=== PATIENT | male | born 1945 | race Caucasian/White ===

== ENCOUNTER 2023-04-30 14:58 | Observation (INO) ==
[2023-04-30] MEDS ORDERED: Lorazepam PYXIS KEY PRN ×2 (15:06→15:22)
[2023-04-30] MEDS ORDERED: LORazepam 2 mg VIAL 1 ml ONE (15:07)
[2023-04-30] MEDS: LORazepam 2 mg VIAL 1 ml IV PUSH ONE ×2 (15:09→15:19)
[2023-04-30] MEDS: levETIRAcetam IV 1,500 MG in NS 0.9% 100 ml BAG 100 ML IVPB ONE (15:34)
[2023-04-30 15:49] LABS: ABS Basophils 0.1 10^3/uL (0.0-0.1); ABS Eosinophils 0.1 10^3/uL (0.0-0.5); ABS Lymphocytes 2.8 10^3/uL (1.0-4.8); ABS Monocytes 0.8 10^3/uL (0.0-1.1); ABS Neutrophils 4.8 10^3/uL (1.5-7.6); ABS Nucleated RBC 0.01 10^3/ul; Eosinophil % 1.4 %; Hematocrit 40.4 % (38-53); Hemoglobin 13.8 g/dL (13.2-16.3); Mean Corpuscular Hemoglobin 30.9 pg (27-33); Mean Corpuscular Hgb Conc 34.2 g/dL (31-36); Mean Corpuscular Volume 90.5 fL (80-97); Mean Platelet Volume 8.2 fL (7.5-11.2); Nucleated Red Blood Cells % 0.1 %/100WBC (0.0-0.8); Platelet Count 386 10^3/uL (150-450); Red Blood Count 4.46 10^6/uL (4.06-5.63); Red Cell Distribution Width 15.1 % (12-17); White Blood Count 8.5 10^3/uL (3.6-10.2)
[2023-04-30 16:21] LABS: Albumin/Globulin Ratio 1.5 (1-3); Creatinine, Serum 0.78 mg/dL (0.67-1.17); Globulin 2.7 g/dL (2-4); Potassium 3.3 mmol/L (3.5-5.0); Total Bilirubin 0.3 mg/dL (0.2-1.0); Total Protein 6.7 g/dL (6.4-8.9)
[2023-04-30] MEDS: levETIRAcetam 500 MG IVPREMIX 500 MG/100 ML BAG IV SCH (19:41)
[2023-04-30] MEDS: Lactated Ringers 1000 ml BAG 1,000 ML IV SCH ×3 (19:43→22:48)
[2023-04-30 20:30] LABS: Magnesium 1.3 mg/dL (1.9-2.7)
[2023-04-30] MEDS ORDERED: Ondansetron ODT 4 mg TAB 4 MG TAB SL PRN (20:33)
[2023-04-30] MEDS ORDERED: LORazepam 2 mg VIAL 1 ml IV PUSH PRN (20:53)
[2023-04-30] MEDS ORDERED: Dextrose 50% Syringe 50 ml 25 GM/50 ML SYRINGE IV PUSH PRN (21:21)
[2023-04-30] MEDS: Magnesium Sulf 4 GM/100 ML IV 4,000 MG/100 ML BAG IVPB ONE (22:44)
[2023-04-30] MEDS: Enoxaparin 40 MG/0.4 ML SYR SUBCUT SCH (22:47)
[2023-04-30] MEDS: NF:ICOSAPENT ETHYL 1 GM CAPSULE (NF) PO SCH (22:47)
[2023-05-01] MEDS: DULoxetine DR 30 mg CAP PO SCH (00:45)
[2023-05-01] MEDS: Potassium Chloride LIQUID 20 MEQ/15 ML LIQUID PO ONE (00:46)
[2023-05-01] MEDS: KCL 20 MEQ/100 ML IVPREMIX 20 MEQ/100 ML BAG IV SCH (02:18)
[2023-05-01 02:57] LABS: Urine Appearance Clear; Urine Bilirubin Negative (Negative); Urine Blood Negative (Negative); Urine Color Yellow; Urine Glucose 3+(>=500 mg/dL) (Negative); Urine Ketones Trace (Negative); Urine Nitrite Negative (Negative); Urine Protein Negative (Negative); Urine Specific Gravity 1.024 (1.002-1.030); Urine Urobilinogen Negative (Negative)
[2023-05-01 07:19] LABS: ALT 23 U/L (7-52); Albumin 3.6 g/dL (3.2-5.2); Albumin/Globulin Ratio 1.4 (1-3); Alkaline Phosphatase 62 U/L (35-149); Anion Gap 8 mmol/L (2-16); Blood Urea Nitrogen 8 mg/dL (6-24); CO2 Carbon Dioxide 27 mmol/L (22-32); Chloride 104 mmol/L (101-111); Globulin 2.5 g/dL (2-4); Glucose 65 mg/dL (70-100); Magnesium 2.1 mg/dL (1.9-2.7); Sodium 139 mmol/L (135-145); Total Bilirubin 0.4 mg/dL (0.2-1.0); Total Protein 6.1 g/dL (6.4-8.9); eGFR CKD-EPI 100.7 (>60)
[2023-05-01] MEDS ORDERED: Polyethylene Glycol 3350 17 GM PACKET PO SCH (09:00)
[2023-05-01 09:35] LABS: Potassium, Whole Blood 4.1 mmol/L (3.4-4.5)
[2023-05-01] MEDS: Cholecalciferol (VIT D3) 1,000 unit TAB PO SCH (09:55)
[2023-05-01] MEDS: Polyethylene Glycol 3350 17 GM PACKET PO SCH (09:56)
[2023-05-01] MEDS: Senna TAB 8.6 mg TAB PO SCH (20:48)
[2023-05-01] MEDS ORDERED: Senna TAB 8.6 mg TAB PO SCH (21:00)
[2023-05-02 07:47] LABS: ABS Basophils 0.1 10^3/uL (0.0-0.1); ABS Eosinophils 0.1 10^3/uL (0.0-0.5); ABS Monocytes 0.4 10^3/uL (0.0-1.1); ABS Neutrophils 2.3 10^3/uL (1.5-7.6); Eosinophil % 1.6 %; Hematocrit 34.2 % (38-53); Hemoglobin 11.7 g/dL (13.2-16.3); Lymphocyte % 26.3 %; Mean Corpuscular Hgb Conc 34.2 g/dL (31-36); Mean Corpuscular Volume 90.7 fL (80-97); Mean Platelet Volume 7.4 fL (7.5-11.2); Platelet Count 218 10^3/uL (150-450); Red Blood Count 3.77 10^6/uL (4.06-5.63); Red Cell Distribution Width 15.2 % (12-17); White Blood Count 3.9 10^3/uL (3.6-10.2)
[2023-05-02 08:15] LABS: Calcium 8.6 mg/dL (8.6-10.3); Creatinine, Serum 0.65 mg/dL (0.67-1.17); Magnesium 1.6 mg/dL (1.9-2.7); Potassium 3.2 mmol/L (3.5-5.0); eGFR CKD-EPI 98.3 (>60)
[2023-05-02 09:41] VITALS: BP 138/69
[2023-05-02] MEDS: Potassium Chlor 20 meq TAB.ER PO ONE (11:41)
[2023-05-02] MEDS: Magnesium Sulfate 2 gm BAG 2 GM/50 ML BAG IVPB ONE (11:52)
[2023-05-02] MEDS: Potassium Chloride LIQUID 20 MEQ/15 ML LIQUID PO ONE ×2 (12:08→13:05)
[2023-05-02] MEDS ORDERED: Potassium Chlor 20 meq TAB.ER PO ONE (13:00)
== END 2023-05-02 14:54 | disposition home or self-care (01) ==
LOC: ED 14:58 → EDHOLD 14:58 → SUATTDRO 18:27 → MEDTELE 20:04
PROVIDERS: ADMIT Internal Medicine; ATTEND Internal Medicine

== ENCOUNTER 2023-10-04 14:35 | Observation (INO) ==
[2023-10-04 15:37] LABS: ABS Lymphocytes 0.8 10^3/uL (1.0-4.8); ABS Monocytes 0.6 10^3/uL (0.0-1.1); ABS Neutrophils 4.6 10^3/uL (1.5-7.6); Eosinophil % 0.4 %; Hemoglobin 10.8 g/dL (13.2-16.3); Lymphocyte % 13.3 %; Mean Corpuscular Hemoglobin 30.5 pg (27-33); Mean Corpuscular Hgb Conc 33.8 g/dL (31-36); Mean Corpuscular Volume 90.1 fL (80-97); Mean Platelet Volume 9.2 fL (7.5-11.2); Nucleated Red Blood Cells % 0.1 %/100WBC (0.0-0.8); Platelet Count 206 10^3/uL (150-450); Red Blood Count 3.55 10^6/uL (4.06-5.63); Red Cell Distribution Width 14.3 % (12-17); White Blood Count 6.1 10^3/uL (3.6-10.2)
[2023-10-04 15:49] LABS: Activated Partial Thrombo Time 20.8 seconds (26.0-38.0); INR 1.12 (0.83-1.13)
[2023-10-04 16:10] LABS: ABS Lymphocytes 0.8 10^3/uL (1.0-4.8); ABS Monocytes 0.6 10^3/uL (0.0-1.1); ABS Neutrophils 4.5 10^3/uL (1.5-7.6); Eosinophil % 0.4 %; Hematocrit 32.7 % (38-53); Hemoglobin 11.1 g/dL (13.2-16.3); Lymphocyte % 12.8 %; Mean Corpuscular Hemoglobin 30.6 pg (27-33); Mean Corpuscular Volume 90.2 fL (80-97); Nucleated Red Blood Cells % 0.1 %/100WBC (0.0-0.8); Platelet Count 175 10^3/uL (150-450); Red Blood Count 3.63 10^6/uL (4.06-5.63); Red Cell Distribution Width 14.1 % (12-17); White Blood Count 5.9 10^3/uL (3.6-10.2)
[2023-10-04 16:12] LABS: ALT 11 U/L (7-52); Albumin 3.8 g/dL (3.2-5.2); Albumin/Globulin Ratio 1.7 (1-3); Alkaline Phosphatase 36 U/L (35-149); Anion Gap 7 mmol/L (2-16); Blood Urea Nitrogen 21 mg/dL (6-24); CO2 Carbon Dioxide 27 mmol/L (22-32); Calcium 9.4 mg/dL (8.6-10.3); Chloride 101 mmol/L (101-111); Cholesterol 123 mg/dL; Creatinine, Serum 1.42 mg/dL (0.67-1.17); Globulin 2.2 g/dL (2-4); Glucose 89 mg/dL (70-100); HDL Cholesterol 35.2 mg/dL; LDL Cholesterol 62 mg/dL; Sodium 135 mmol/L (135-145); Total Bilirubin 0.4 mg/dL (0.2-1.0); Triglycerides 127 mg/dL; eGFR CKD-EPI 51.2 (>60)
[2023-10-04] MEDS: Heparin 5000 UNITS/ML 1 mL VIAL IV SCH (16:15)
[2023-10-04] MEDS: Heparin DRIP 25,000 UNITS BAG 25,000 UNITS/250 ML BAG IV SCH (16:16)
[2023-10-04 16:41] LABS: Urine Appearance Clear; Urine Bilirubin Negative (Negative); Urine Blood Negative (Negative); Urine Color Light-Yellow; Urine Glucose 4+ (>=1000 mg/dL) (Negative); Urine Ketones Negative (Negative); Urine Nitrite Negative (Negative); Urine Protein Negative (Negative); Urine Urobilinogen Negative (Negative); Urine pH 6.5 (5.0-8.0)
[2023-10-04] MEDS: Iodixanol (CONTRAST) 320 MG/ML 100 ML SDV IV ONE (16:51)
[2023-10-04 17:03] LABS: Creatinine, Serum 1.41 mg/dL (0.67-1.17); eGFR CKD-EPI 51.6 (>60)
[2023-10-04 17:42] LABS: Potassium Redraw 4.4 mmol/L (3.5-5.0)
[2023-10-04] MEDS: Aspirin EC 81 mg TAB.EC (enteric coated) PO SCH (18:30)
[2023-10-04] MEDS ORDERED: Dextrose 50% Syringe 50 ml 25 GM/50 ML SYRINGE IV PUSH PRN (18:41)
[2023-10-04 18:42] LABS: TSH Ultra Thyroid Stim Horm 5.19 mcIU/mL (0.34-5.60)
[2023-10-04] MEDS: ICOSAPENT ETHYL 1 GM CAPSULE (NF) PO SCH (20:33)
[2023-10-04] MEDS: DULoxetine DR 30 mg CAP PO SCH (20:33)
[2023-10-05 06:05] LABS: ABS Eosinophils 0.1 10^3/uL (0.0-0.5); ABS Monocytes 0.4 10^3/uL (0.0-1.1); Eosinophil % 1.8 %; Hematocrit 31.9 % (38-53); Hemoglobin 10.8 g/dL (13.2-16.3); Lymphocyte % 22.6 %; Mean Corpuscular Hemoglobin 30.2 pg (27-33); Mean Corpuscular Hgb Conc 33.7 g/dL (31-36); Mean Corpuscular Volume 89.5 fL (80-97); Mean Platelet Volume 8.2 fL (7.5-11.2); Platelet Count 175 10^3/uL (150-450); Red Blood Count 3.57 10^6/uL (4.06-5.63); Red Cell Distribution Width 13.9 % (12-17); White Blood Count 4.6 10^3/uL (3.6-10.2)
[2023-10-05] MEDS ORDERED: MAGNESIUM OXIDE PO SCH (09:00)
[2023-10-05] MEDS ORDERED: MAGNESIUM PO SCH (09:00)
[2023-10-06 05:32] LABS: ABS Basophils 0.1 10^3/uL (0.0-0.1); ABS Eosinophils 0.1 10^3/uL (0.0-0.5); ABS Monocytes 0.6 10^3/uL (0.0-1.1); ABS Neutrophils 2.9 10^3/uL (1.5-7.6); Eosinophil % 1.9 %; Hematocrit 32.2 % (38-53); Hemoglobin 10.9 g/dL (13.2-16.3); Mean Corpuscular Hemoglobin 30.3 pg (27-33); Mean Corpuscular Hgb Conc 33.8 g/dL (31-36); Mean Corpuscular Volume 89.7 fL (80-97); Mean Platelet Volume 7.9 fL (7.5-11.2); Nucleated Red Blood Cells % 0.1 %/100WBC (0.0-0.8); Platelet Count 198 10^3/uL (150-450); Red Blood Count 3.59 10^6/uL (4.06-5.63); Red Cell Distribution Width 13.9 % (12-17); White Blood Count 4.6 10^3/uL (3.6-10.2)
[2023-10-06 06:14] LABS: Calcium 9.1 mg/dL (8.6-10.3); Creatinine, Serum 1.1 mg/dL (0.67-1.17); Magnesium 1.4 mg/dL (1.9-2.7); Potassium 3.8 mmol/L (3.5-5.0); eGFR CKD-EPI 69.6 (>60)
[2023-10-06] MEDS: Magnesium Sulfate 2 gm BAG 2 GM/50 ML BAG IVPB ONE (12:37)
[2023-10-07 06:15] LABS: ABS Eosinophils 0.1 10^3/uL (0.0-0.5); ABS Lymphocytes 0.9 10^3/uL (1.0-4.8); ABS Monocytes 0.5 10^3/uL (0.0-1.1); ABS Neutrophils 2.5 10^3/uL (1.5-7.6); Eosinophil % 2.4 %; Hematocrit 30.9 % (38-53); Hemoglobin 10.3 g/dL (13.2-16.3); Lymphocyte % 22.1 %; Mean Corpuscular Hemoglobin 29.8 pg (27-33); Mean Corpuscular Hgb Conc 33.1 g/dL (31-36); Mean Platelet Volume 8.1 fL (7.5-11.2); Nucleated Red Blood Cells % 0.1 %/100WBC (0.0-0.8); Platelet Count 203 10^3/uL (150-450); Red Blood Count 3.44 10^6/uL (4.06-5.63)
[2023-10-07 06:33] LABS: Creatinine, Serum 1.09 mg/dL (0.67-1.17); Magnesium 1.7 mg/dL (1.9-2.7); Potassium 3.6 mmol/L (3.5-5.0); eGFR CKD-EPI 70.3 (>60)
[2023-10-07] MEDS: Magnesium Sulfate 2 gm BAG 2 GM/50 ML BAG IVPB ONE (08:41)
[2023-10-07] MEDS: Gadoteridol (CONTRAST) 279.3 MG/ML 10 ML IV ONE (10:34)
[2023-10-07] MEDS: Sulfur Hexaflouride MICROSPHR 25 MG VIAL IV ONE (11:34)
[2023-10-07 13:00] VITALS: BP 98/54
== END 2023-10-07 16:45 | disposition home or self-care (01) ==
LOC: EDHOLD 14:35 → ED 14:35 → MEDTELE 10-05 11:20
PROVIDERS: ADMIT Student in an Organized Health Care Education/Training Program; ATTEND Student in an Organized Health Care Education/Training Program

== ENCOUNTER 2024-02-06 16:56 | Inpatient (IN) ==
[2024-02-06 18:45] LABS: Hematocrit 20.2 % (38-53); Mean Corpuscular Hemoglobin 20.9 pg (27-33); Mean Corpuscular Hgb Conc 29.7 g/dL (31-36); Mean Corpuscular Volume 70.4 fL (80-97); Mean Platelet Volume 7.6 fL (7.5-11.2); Platelet Count 321 10^3/uL (150-450); Red Blood Count 2.87 10^6/uL (4.06-5.63); White Blood Count 4.2 10^3/uL (3.6-10.2)
[2024-02-06 18:48] LABS: Activated Partial Thrombo Time 29.6 seconds (26.0-38.0); INR 1.44 (0.85-1.14)
[2024-02-06 19:15] LABS: Immature Retic Fraction 0.54
[2024-02-06 19:17] LABS: Corrected Retic Count 1.1 % (0.5-2.2); Hematocrit for Retic CNT 20.2 % (38-53); RBC Retic Count 2.87 10^6/ul (4.06-5.63)
[2024-02-06 19:22] LABS: ABS Basophils 0.1 10^3/uL (0.0-0.1); ABS Eosinophils 0.1 10^3/uL (0.0-0.5); ABS Lymphocytes 1.2 10^3/uL (1.0-4.8); ABS Monocytes 0.4 10^3/uL (0.0-1.1); ABS Neutrophils 2.5 10^3/uL (1.5-7.6); Eosinophil % 2.1 %; Lymphocyte % 27.8 %
[2024-02-06 19:23] LABS: Anisocytosis 1+; Hypochromasia 2+; Microcytosis 2+; Polychromasia 1+; Stomatocytes 1+
[2024-02-06 19:32] LABS: ALT 17 U/L (7-52); AST 23 U/L (13-39); Albumin 4.4 g/dL (3.2-5.2); Alkaline Phosphatase 54 U/L (35-149); Anion Gap 9 mmol/L (2-16); Blood Urea Nitrogen 23 mg/dL (6-24); CO2 Carbon Dioxide 27 mmol/L (22-32); Calcium 9.6 mg/dL (8.6-10.3); Chloride 102 mmol/L (101-111); Creatinine, Serum 1.13 mg/dL (0.67-1.17); Globulin 2.2 g/dL (2-4); Glucose 108 mg/dL (70-100); Iron < 20 ug/dL (50-212); Potassium 3.4 mmol/L (3.5-5.0); Sodium 138 mmol/L (135-145); Total Bilirubin 0.2 mg/dL (0.2-1.0); Total Protein 6.6 g/dL (6.4-8.9); eGFR CKD-EPI 67.4 (>60)
[2024-02-06 19:48] LABS: Urine Appearance Clear; Urine Bilirubin Negative (Negative); Urine Blood Negative (Negative); Urine Color Colorless; Urine Glucose 4+ (>=1000 mg/dL) (Negative); Urine Ketones Negative (Negative); Urine Nitrite Negative (Negative); Urine Protein Negative (Negative); Urine Urobilinogen Negative (Negative)
[2024-02-06 19:56] LABS: Folate 11.18 ng/mL (5.90-24.80)
[2024-02-06 19:57] LABS: Vitamin B12 105 pg/mL (180-914)
[2024-02-06 20:24] LABS: High Sensitivity Troponin 1 Hr 6 pg/mL (<20)
[2024-02-06] MEDS: Potassium Chloride LIQUID 20 MEQ/15 ML LIQUID PO ONE (21:34)
[2024-02-07] MEDS: Iohexol 350 (CONTRAST) 500 ML MDV IV ONE (00:28)
[2024-02-07 00:38] LABS: % Iron Saturation 4 % (15-55); .Transferrin 401 mg/dL (203-362); LDH 143 U/L (140-271); Total Iron Binding Capacity 561 mcg/dL (250-450); Unsaturated Iron Binding 541 ug/dL
[2024-02-07 00:59] LABS: Ferritin 5.6 ng/mL (24-336)
[2024-02-07] MEDS ORDERED: Cyanocobalamin INJ 1,000 MCG/ML VIAL 1 ML VIAL IM SCH (01:00)
[2024-02-07] MEDS ORDERED: Dextrose 50% Syringe 50 ml 25 GM/50 ML SYRINGE IV PUSH PRN (01:07)
[2024-02-07] MEDS ORDERED: Senna TAB 8.6 mg TAB PO PRN (01:22)
[2024-02-07] MEDS ORDERED: Magnesium Hydroxide LIQ 30 ML UDC PO PRN (01:22)
[2024-02-07] MEDS ORDERED: Polyethylene Glycol 3350 17 GM PACKET PO PRN (01:22)
[2024-02-07] MEDS: Cyanocobalamin INJ 1,000 MCG/ML VIAL 1 ML VIAL IM SCH (02:34)
[2024-02-07] MEDS: Pantoprazole VIAL 40 MG VIAL IV SCH (02:34)
[2024-02-07 06:46] LABS: Albumin/Globulin Ratio 1.9 (1-3); Calcium 9.2 mg/dL (8.6-10.3); Creatinine, Serum 1.08 mg/dL (0.67-1.17); Globulin 2.1 g/dL (2-4); Potassium 3.8 mmol/L (3.5-5.0); Total Bilirubin 0.7 mg/dL (0.2-1.0); Total Protein 6.1 g/dL (6.4-8.9); eGFR CKD-EPI 71.1 (>60)
[2024-02-07 06:51] LABS: ABS Basophils 0.1 10^3/uL (0.0-0.1); ABS Eosinophils 0.1 10^3/uL (0.0-0.5); ABS Lymphocytes 1.1 10^3/uL (1.0-4.8); ABS Monocytes 0.5 10^3/uL (0.0-1.1); ABS Neutrophils 2.6 10^3/uL (1.5-7.6); ABS Nucleated RBC 0.01 10^3/ul; Eosinophil % 2.7 %; Hematocrit 26.4 % (38-53); Hemoglobin 8.4 g/dL (13.2-16.3); Lymphocyte % 24.5 %; Mean Corpuscular Hemoglobin 23.7 pg (27-33); Mean Corpuscular Hgb Conc 31.7 g/dL (31-36); Mean Corpuscular Volume 74.7 fL (80-97); Nucleated Red Blood Cells % 0.2 %/100WBC (0.0-0.8); Platelet Count 281 10^3/uL (150-450); Red Blood Count 3.54 10^6/uL (4.06-5.63); Red Cell Distribution Width 19.6 % (12-17); White Blood Count 4.5 10^3/uL (3.6-10.2)
[2024-02-07] MEDS: Ferric Gluconate IV 250 MG in NS 0.9% 250 ml 200 ML IVPB SCH (10:00)
[2024-02-07] MEDS: levETIRAcetam IV 750 MG in NS 0.9% 100 ml BAG 100 ML IVPB SCH (12:46)
[2024-02-07] MEDS ORDERED: Midazolam 10 mg/10 ml VIAL 1 mg/ml 10 ml VIAL (10 mg) ONE (15:36)
[2024-02-07] MEDS ORDERED: fentaNYL 100 mcg/2 ml 50 MCG/ML VIAL ONE (15:36)
[2024-02-07] MEDS ORDERED: Heparin 5000 UNITS/ML 1 mL VIAL IV SCH ×2 (18:00→21:00)
[2024-02-07] MEDS: Heparin DRIP 25,000 UNITS BAG 25,000 UNITS/250 ML BAG IV SCH ×2 (19:00→19:40)
[2024-02-07] MEDS: DULoxetine DR 30 mg CAP PO SCH (22:27)
[2024-02-08 09:23] LABS: Hematocrit 28.5 % (38-53); Mean Corpuscular Hemoglobin 23.7 pg (27-33); Mean Corpuscular Hgb Conc 31.6 g/dL (31-36); Mean Platelet Volume 7.9 fL (7.5-11.2); Platelet Count 283 10^3/uL (150-450); Red Blood Count 3.81 10^6/uL (4.06-5.63); Red Cell Distribution Width 19.8 % (12-17); White Blood Count 4.7 10^3/uL (3.6-10.2)
[2024-02-08 10:39] LABS: Calcium 9.5 mg/dL (8.6-10.3); Creatinine, Serum 1.1 mg/dL (0.67-1.17); Potassium 3.8 mmol/L (3.5-5.0); eGFR CKD-EPI 69.6 (>60)
[2024-02-08] MEDS: Polyethylene Glycol 3350 17 GM PACKET PO SCH (13:42)
[2024-02-08] MEDS: Heparin DRIP 25,000 UNITS BAG 25,000 UNITS/250 ML BAG IV SCH (16:29)
[2024-02-08] MEDS ORDERED: Senna TAB 8.6 mg TAB PO SCH (21:00)
[2024-02-08] MEDS: Cyanocobalamin INJ 1,000 MCG/ML VIAL 1 ML VIAL IM SCH (22:35)
[2024-02-08] MEDS: Senna TAB 8.6 mg TAB PO SCH (22:35)
[2024-02-09 04:53] LABS: Hematocrit 25.9 % (38-53); Hemoglobin 8.3 g/dL (13.2-16.3); Mean Corpuscular Hemoglobin 23.7 pg (27-33); Mean Corpuscular Hgb Conc 31.8 g/dL (31-36); Mean Corpuscular Volume 74.4 fL (80-97); Mean Platelet Volume 7.8 fL (7.5-11.2); Platelet Count 263 10^3/uL (150-450); Red Blood Count 3.49 10^6/uL (4.06-5.63); Red Cell Distribution Width 19.9 % (12-17); White Blood Count 4.9 10^3/uL (3.6-10.2)
[2024-02-09 04:57] LABS: Activated Partial Thrombo Time 66.8 seconds (26.0-38.0)
[2024-02-09 05:10] LABS: Calcium 9.3 mg/dL (8.6-10.3); Creatinine, Serum 1.1 mg/dL (0.67-1.17); Magnesium 1.6 mg/dL (1.9-2.7); Potassium 3.8 mmol/L (3.5-5.0); eGFR CKD-EPI 69.6 (>60)
[2024-02-09 07:16] LABS: INR 1.3 (0.85-1.14)
[2024-02-09] MEDS: Magnesium Sulfate 2 gm BAG 2 GM/50 ML BAG IVPB ONE (08:35)
[2024-02-09] MEDS: PEG 3000 GI LAVAGE 1 GALLON PO ONE (13:59)
[2024-02-10 06:06] LABS: Hematocrit 25.7 % (38-53); Hemoglobin 8.1 g/dL (13.2-16.3); Mean Corpuscular Hemoglobin 23.8 pg (27-33); Mean Corpuscular Hgb Conc 31.4 g/dL (31-36); Mean Corpuscular Volume 75.7 fL (80-97); Mean Platelet Volume 7.7 fL (7.5-11.2); Platelet Count 267 10^3/uL (150-450); Red Blood Count 3.39 10^6/uL (4.06-5.63); Red Cell Distribution Width 20.7 % (12-17); White Blood Count 4.3 10^3/uL (3.6-10.2)
[2024-02-10 06:56] LABS: Creatinine, Serum 1.11 mg/dL (0.67-1.17); Magnesium 1.8 mg/dL (1.9-2.7); Potassium 3.8 mmol/L (3.5-5.0); eGFR CKD-EPI 68.8 (>60)
[2024-02-10] MEDS: Magnesium Sulfate 2 gm BAG 2 GM/50 ML BAG IVPB ONE (08:04)
[2024-02-10 12:29] LABS: INR 1.29 (0.85-1.14)
[2024-02-10] MEDS ORDERED: fentaNYL 100 mcg/2 ml 50 MCG/ML VIAL ONE (14:55)
[2024-02-10] MEDS ORDERED: Midazolam 10 mg/10 ml VIAL 1 mg/ml 10 ml VIAL (10 mg) ONE (14:55)
[2024-02-10] MEDS ORDERED: Naloxone 0.4 mg VIAL 0.4 mg/ml 1 ml VIAL IV PUSH PRN (15:09)
[2024-02-10] MEDS ORDERED: Flumazenil 0.5 mg/5 ml 0.1 MG/ML 5 ml VIAL IV PRN (15:09)
[2024-02-10] MEDS ORDERED: Polyethylene Glycol 3350 17 GM PACKET PO PRN (16:32)
[2024-02-10] MEDS ORDERED: Senna TAB 8.6 mg TAB PO PRN (16:32)
[2024-02-10] MEDS: fentaNYL 100 mcg/2 ml 50 MCG/ML VIAL IV SLOW PU ONE (17:06)
[2024-02-10] MEDS: Lidocaine 2% JELLY 6 ML Topical TOPICAL ONE (17:06)
[2024-02-10] MEDS: Ondansetron 4 mg VIAL 2 MG/ML 2 ml VIAL IV ONE (17:07)
[2024-02-10] MEDS: Midazolam 10 mg/10 ml VIAL 1 mg/ml 10 ml VIAL (10 mg) IV SLOW PU ONE (17:07)
[2024-02-10] MEDS: Heparin DRIP 25,000 UNITS BAG 25,000 UNITS/250 ML BAG IV SCH (17:54)
[2024-02-10] MEDS ORDERED: Heparin 5000 UNITS/ML 1 mL VIAL IV SCH (18:00)
[2024-02-10] MEDS: Lactated Ringers 1000 ml BAG 1,000 ML IV ONE (18:34)
[2024-02-11 06:55] LABS: Hematocrit 27.6 % (38-53); Hemoglobin 8.8 g/dL (13.2-16.3); Mean Corpuscular Hemoglobin 24.8 pg (27-33); Mean Corpuscular Hgb Conc 31.9 g/dL (31-36); Mean Corpuscular Volume 77.8 fL (80-97); Platelet Count 245 10^3/uL (150-450); Red Blood Count 3.55 10^6/uL (4.06-5.63); Red Cell Distribution Width 20.4 % (12-17); White Blood Count 4.8 10^3/uL (3.6-10.2)
[2024-02-11 07:29] LABS: Calcium 9.1 mg/dL (8.6-10.3); Creatinine, Serum 1.09 mg/dL (0.67-1.17); Magnesium 1.6 mg/dL (1.9-2.7); Potassium 3.7 mmol/L (3.5-5.0); eGFR CKD-EPI 70.3 (>60)
[2024-02-11] MEDS: Magnesium Sulfate 2 gm BAG 2 GM/50 ML BAG IVPB ONE (10:37)
[2024-02-11 13:35] LABS: Tissue Transglutaminase IgA Ab <1.2 U/mL
[2024-02-11 13:55] VITALS: BP 136/48
[2024-02-11 23:10] LABS: Immunoglobulin A 100 mg/dL (61 - 356)
== END 2024-02-11 16:04 | disposition home or self-care (01) | DRG 812 ==
LOC: ED 16:56 → EDHOLD 16:56 → SUATTDRO 23:38 → MEDTELE 02-07 00:27 → SUATTDRO 02-09 13:31
PROVIDERS: ADMIT Internal Medicine; ATTEND Internal Medicine